=== PATIENT | male | born 1995 ===

== ENCOUNTER 2016-10-11 15:54 | Emergency (ER) | payer SELFPAY ==
[2016-10-11 16:06] VITALS: BP 135/82
--- NOTE | 2016-10-11 17:41 | UC ---
Complaint Male HPI - HPI Summary HPI Summary: complaint of pain in left groin noticed a lump today that has worsened pain worsened by ambulating painful at rest soemtimes he gets a sharp stabbing pain denies testicular pain denies trauma or heavy lifting denies fever , N/V/D, dysuria, penile lesions or discharge denies back pain not taking any medication for pain he noticed pimple on his left leg that he popped 2 days ago he noticed yesterday has it has become red and swollen and is increasing denies fever and fatigued - History of Current Complaint Chief Complaint: UCAbdominalPain Stated Complaint: SHARP PAIN IN PELVIS Time Seen by Provider: 10/11/16 17:29 Location: Groin Character: Sharp Aggravating Factor(s): Nothing Alleviating Factor(s): Nothing - Allergies/Home Medications Allergies/Adverse Reactions: Allergies Allergy/AdvReac Type Severity Reaction Status Date / Time No Known Allergies Allergy Verified 10/11/16 16:05 PMH/Surg Hx/FS Hx/Imm Hx Previously Healthy: Yes - epididymitis -6 months ago - Surgical History Surgical History: None - Family History Known Family History: Negative: Cardiac Disease, Hypertension, Diabetes - Social History Occupation: Employed Full-time Lives: With Family Alcohol Use: None Substance Use Type: None Smoking Status (MU): Never Smoked Tobacco Review of Systems Constitutional: Negative Skin: Negative Eyes: Negative ENT: Negative Respiratory: Negative Cardiovascular: Negative Gastrointestinal: Abdominal Pain Genitourinary: Other - testicular pain Motor: Negative Neurovascular: Negative Musculoskeletal: Negative Neurological: Negative Psychological: Negative All Other Systems Reviewed And Are Negative: Yes Physical Exam Triage Information Reviewed: Yes Appearance: Well-Appearing, No Pain Distress, Well-Nourished Vital Signs: Initial Vital Signs Temp 98.2 F 10/11/16 16:01 Pulse 67 10/11/16 16:01 Resp 20 10/11/16 16:01 BP 135/82 10/11/16 16:01 Pulse Ox 100 10/11/16 16:01 Vital Signs Reviewed: Yes Eyes: Positive: Conjunctiva Clear Neck: Positive: No Lymphadenopathy Respiratory: Positive: Lungs clear, Normal breath sounds, No respiratory distress, No accessory muscle use Cardiovascular: Positive: RRR, No Murmur, Pulses Normal, Brisk Capillary Refill Abdomen Description: Positive: Nontender, Soft Bowel Sounds: Positive: Present Musculoskeletal: Positive: No Edema Neurological: Positive: Alert Psychological Exam: Normal Skin: Positive: Other - LLU- 24x16 c area of erythema surrounding open area- no induration beneath - Additional Comments exam- no testicular pain or abnormalities- negative for hernia, no penile lesions or discharge Left groin with tender edematous lymph node Complaint Male Course/Dx - Course Course Of Treatment: exam completed. cellulitis in left leg with lymph node involvement left groin - Differential Dx/Diagnosis Differential Diagnosis/HQI/PQRI: Other - cellulitis, swollen lymph node Provider Diagnoses: cellulitis. swollen lymph node left groin Discharge - Discharge Plan Condition: Stable Disposition: HOME Prescriptions: Sulfamethox/Trimethoprim DS* [Bactrim DS 800/160 TAB*] 1 tab PO BID #14 tab Patient Education Materials: Cellulitis (ED) Referrals: No Primary Care Phys,[facility] [Primary Care Provider] - [facility] [place] [facility] [Outside] Additional Instructions: CELLULITIS What is Cellulitis? Cellulitis is a bacterial infection of the skin and, sometimes, of the tissues beneath the skin. The skin normally has many types of bacteria on it, but intact skin is an effective barrier that keeps bacteria from entering and growing within the body. When there is a break in the skin, bacteria can enter the body and grow there, causing infection. The infection usually affects outer layers of the skin first, and then spreads deeper into body tissues. Cellulitis can affect any area of the body covered by skin, but it is most common on the face or lower part of the legs. Symptoms Might Include: Skin redness that increases in size as the infection spreads Tight, glossy, "stretched" appearance of the skin Pain or tenderness of the area The affected area may be warm or hot to the touch A thin red line (along a vein) from the cellulitis toward the heart Fever Chills, shaking Muscle aches pains Joint stiffness because of swelling around a joint Treatment Recommendations: The healthcare provider may have prescribed an antibiotic medicine. The medicine should be taken until it is completely gone, even if you are feeling better. If you stop taking the medicine early, the infection may not be completely gone, and e medication may not work the next time. If the infection is on your arm or leg, keep it elevated. You may use warm, wet compresses to relieve the pain and help healing. Soak a clean cloth in warm water, wring it out a little, and apply it to the affected site. Leave the soak in place for 15 minutes and repeat often throughout the day. Rest until the fever is gone and the pain and redness have lessened. You may take ibuprofen (Motrin, Advil), or acetaminophen (Tylenol) for pain. These will help ease some of the symptoms but will not cure the infection. Call Your Doctor or Return Here IF: Your fever does not go down with treatment, or it increases to more than 101 F. You are not starting to get better with the treatment within 24 to 36 hours. You have increasing pain, swelling, or chills. You feel drowsy and lethargic, or you have vomiting or diarrhea. You find the redness is spreading or there are red streaks coming from the infected area. The joint or bone under the infected skin becomes painful after the skin has started to heal. You have any new symptoms that worry you.
== END 2016-10-11 18:05 | disposition home or self-care (01) ==
LOC: UCEAST 15:54
DX: L03.314 Cellulitis of groin (principal); R59.0 Localized enlarged lymph nodes
CPT/HCPCS: 99202; G0463